=== PATIENT | female | born 1945 ===

== ENCOUNTER 2018-05-03 18:00 | Inpatient (IN) | payer OTHER ==
[~2018-05-03] VITALS: Ht 162.6 cm; Wt 93.0 kg
[2018-05-17] MEDS ORDERED: LOPRESSOR25 MG PO (08:57)
[2018-05-17] MEDS ORDERED: CATAPRES0.1 MG PO (08:57)
[2018-05-17] MEDS ORDERED: LOTREL 10-40 M1 EACH PO (08:58)
[2018-05-17] MEDS ORDERED: HUMALOG100 UNIT/1 (08:59)
[2018-05-17] MEDS ORDERED: HUM (09:00)
[2018-05-27] MEDS ORDERED: INTEGRA PLUS C1 EACH PO (08:20)
[2018-05-27] MEDS ORDERED: XARELTO10 MG PO (08:20)
[2018-05-27] MEDS ORDERED: OXYC1TAB9 PO (08:20)
== END 2018-05-27 11:12 | DRG 470 ==
LOC: SURH 05-24 05:30 → O/R 05-24 08:35 → SURG 05-24 08:35
PROVIDERS: Orthopaedic Surgery Sports Medicine
PROC: 0SRD0J9 Replacement of Left Knee Joint with Synthetic Substitute, Cemented, Open Approach (ICD-10-PCS; principal; 2018-05-24 05:30)
DX: M17.12 Unilateral primary osteoarthritis, left knee (principal); I10 Essential (primary) hypertension; E11.9 Type 2 diabetes mellitus without complications